=== PATIENT | female | born 1970 | race Caucasian/White ===

== ENCOUNTER 2018-06-17 08:37 | Emergency (ER) ==
[2018-06-17] MEDS ORDERED: TENIVAC IM ONE (08:39)
[2018-06-17] MEDS ORDERED: LIDOCAINE HCL 1% SDV SUBCUT STA (08:40)
[2018-06-17] MEDS ORDERED: LIDOCAINE HCL 1% SDV ONE (08:40)
[2018-06-17 08:45] VITALS: BP 146/90; TEMP 97.6; BMI 24.4
--- NOTE | 2018-06-17 09:03 | ED.PDOC ---
General ED Provider: Dr. IKE SALGADO Chief Complaint: Finger Laceration Stated Complaint: finger laceration 4th finger Time Seen by Physician: 08:40 (seen with marc at all times ) Mode of Arrival: Walk-In Information Source: Patient Exam Limitations: No limitations Primary Care Provider: [facility] Nursing and Triage Documentation Reviewed and Agree: Yes Does patient meet sepsis criteria?: No System Inflammatory Response Syndrome: Not Applicable (see photos before and after ) Sepsis Protocol: For patient's 13 years and over: Temp is 96.8 and below OR 101 and greater Pulse >90 BPM Resp >20/minute Acutely Altered Mental Status Are patient's symptoms suggestive of a new infection, such as: -Pneumonia -Skin, Soft Tissue -Endocarditis -UTI -Bone, Joint Infection -Implantable Device -Acute Abdominal Infection -Wound Infection -Meningitis -Blood Stream Catheter Infection -Unknown Skin Complaint Exam - Lac/Torso/Upper Ext. Complaint/Exam Location of Injury: Right (hand 4th finger see photos PLEASE ) Mechanism of Injury: Laceration Onset/Duration: 15 MIN PRIOR TO ARRIVAL Symptoms Are: Still present Initial Severity: Moderate Current Severity: Moderate Aggravating: Movement Alleviating: Compression Associated Signs and Symptoms: Denies: Fever, Chills, Erythema, Numbness, Tingling Related History: Reports: Anticoagulant use (TAKES MOTRIN FOR ANKLE ) Differential Diagnoses: Laceration Review of Systems - Review Of Systems Constitutional: Reports: No symptoms Eyes: Reports: No symptoms Ears, Nose, Mouth, Throat: Reports: No symptoms Respiratory: Reports: No symptoms Cardiac: Reports: No symptoms GI: Reports: No symptoms : Reports: No symptoms Musculoskeletal: Reports: No symptoms Skin: Reports: Other (LACERATION 4TH FINGER SEE PHOTOS) Neurological: Reports: No symptoms Endocrine: Reports: No symptoms Hematologic/Lymphatic: Reports: No symptoms All Other Systems: Reviewed and Negative Past Medical History - Past Medical History Previously Healthy: Yes Endocrine: Reports: None Cardiovascular: Reports: None Respiratory: Reports: None Hematological: Reports: None Gastrointestinal: Reports: None Genitourinary: Reports: None Neuro/Psych: Reports: None Musculoskeletal: Reports: None Cancer: Reports: None Last Menstrual Period: NA - Surgical History General Surgical History: Reports: None - Family History Family History: Reports: None - Social History Smoking Status: Never smoker Hx Substance Use: No Alcohol Screening: None - Immunizations Tetanus Shot up to Date: No Physical Exam - Physical Exam Appearance: Well-appearing, No pain distress, Well-nourished Eyes: ODETTE, EOMI, Conjunctiva clear ENT: Ears normal, Nose normal, Oropharynx normal Respiratory: Airway patent, Breath sounds clear, Breath sounds equal, Respirations nonlabored Cardiovascular: RRR, Pulses normal, No rub, No murmur GI/: Soft, Nontender, No masses, Bowel sounds normal, No Organomegaly Musculoskeletal: Normal strength, ROM intact, No edema, No calf tenderness (NO R.O.M ISSUES ) Skin: Warm, Dry (1 CM LACERATION 4TH FINGER ) Neurological: Sensation intact, Motor intact, Reflexes intact, Cranial nerves intact, Alert, Oriented Psychiatric: Affect appropriate, Mood appropriate Procedures - Laceration/Wound Repair No standard instances Wound Description: Linear Wound Length (cm): 1CM PALMAR SIDE RIGHT 4TH FINGER Wound Width: 2MM Wound Depth: 2MM Wound Explored: Clean Wound Irrigated: No Wound Prep: Saline, Hibiclens Anesthesia: Lidocaine (1M PLAIN) Wound Debrided: Minimal Undermining: Minimal Wound Margins: Revised, [place] border aligned Wound Repaired With: Sutures Suture Size and Type: 3 PROLENE Number of Sutures: 6 Number of [place]: 0 Layer Closure?: No Deep Layer Suture Size and Type: NO Number Deep Layer Sutures: 0 Sterile Dressing Applied?: Yes (SEE PHOTOS BEFORE AND AFTER ) Critical Care Note - Critical Care Note Total Time (mins): 0 Course - Course Orders, Labs, Meds: Orders Category Date Time Status Lidocaine HCl/Pf [Lidocaine HCl 1% Sdv] MEDS 06/17/18 08:40 Discontinued 5 ml .ROUTE .STK-MED ONE Lidocaine HCl/Pf [Lidocaine HCl 1% Sdv] MEDS 06/17/18 08:40 Stat 5 ml SUBCUT ONCE STA Tetanus and Diphtheria Tox/Pf [Tenivac] MEDS 06/17/18 08:39 Once 0.5 ml IM .ONCE ONE Medications Discontinued Medications Generic Name Dose Route Start Last Admin Trade Name Freq PRN Reason Stop Dose Admin Lidocaine HCl 5 ml 06/17/18 08:40 06/17/18 08:48 Lidocaine Hcl 1% Sdv SUBCUT 06/17/18 08:41 5 ml ONCE STA Administration Tetanus/Diphtheria Toxoids Adsorbed 0.5 ml 06/17/18 08:39 06/17/18 08:59 Tenivac IM 06/17/18 08:40 0.5 ml .ONCE ONE Administration Vital Signs: Temp Pulse Resp BP Pulse Ox 06/17/18 08:39 97.6 F 88 22 146/90 H 97 Departure - Departure Time of Disposition: 09:06 (SEE PHOTOS BEFORE AND AFTER ) Disposition: HOME SELF-CARE Discharge Problem: Laceration of finger Instructions: Laceration (ED), Care For Your Stitches (DC) Condition: Good Pt referred to PMD for follow-up: Yes IPMP verified?: No Additional Instructions: Please call your Family Physician as soon as possible to schedule a follow-up appointment. Allergies/Adverse Reactions: Allergies No Known Allergies Allergy (Unverified 01/16/18 14:23) Home Medications: Ambulatory Orders Amoxicillin 500 mg PO Q8HR #21 tablet 06/17/18 Hydrocodone/Acetaminophen [[place] 5-325 Tablet] 1 each PO Q6HR PRN #12 tablet
== END 2018-06-17 09:17 | disposition home or self-care (01) ==
LOC: ED 08:37
DX: S61.214A Laceration without foreign body of right ring finger without damage to nail, initial encounter (principal); W45.8XXA Other foreign body or object entering through skin, initial encounter
CPT/HCPCS: 90471; 90714; 99283